=== PATIENT | female | born 1945 | race Caucasian/White ===

== ENCOUNTER → 2020-08-03 | Outpatient (CLI) | payer MEDICARE ==
[~2020-08-03] MED LIST: IMIP50TA3 PO; LOSA50TA14 PO; POTA10TA31 PO; SPIR50TA4 PO
== END | disposition home or self-care (01) ==
LOC: CVU 09:31
PROVIDERS: ATTEND Nurse Practitioner
DX: I77.1 Stricture of artery (principal); I70.203 Unspecified atherosclerosis of native arteries of extremities, bilateral legs; I10 Essential (primary) hypertension; Z85.828 Personal history of other malignant neoplasm of skin
CPT/HCPCS: 93922; 93925

== ENCOUNTER 2020-08-07 08:32 | Outpatient (CLI) | payer MEDICARE | END 2020-08-07 23:59 | disposition home or self-care (01) | LOC: CFH 08:32 | PROVIDERS: ATTEND Nurse Practitioner | DX: Z12.31 Encounter for screening mammogram for malignant neoplasm of breast (principal); Z12.2 Encounter for screening for malignant neoplasm of respiratory organs; F17.210 Nicotine dependence, cigarettes, uncomplicated; I25.10 Atherosclerotic heart disease of native coronary artery without angina pectoris; N26.1 Atrophy of kidney (terminal); M51.34 Other intervertebral disc degeneration, thoracic region | CPT/HCPCS: 71271; 77067 ==

== ENCOUNTER → 2020-11-13 | Outpatient (CLI) | payer MEDICARE ==
[~2020-11-13] MED LIST changes: +REGADENOSON 0.4 MG/5 ML SYRINGE ONE
== END | disposition home or self-care (01) ==
LOC: CFH 07:26
PROVIDERS: ATTEND Internal Medicine Cardiovascular Disease
DX: R94.31 Abnormal electrocardiogram [ECG] [EKG] (principal); R55 Syncope and collapse
CPT/HCPCS: 78452; 93017; A9502; J2785